=== PATIENT | male | born 1950 | race Caucasian/White ===

== ENCOUNTER 2016-04-30 10:48 | Inpatient (IN) | payer OTHER ==
--- NOTE | 2016-04-30 11:02 | ER Document Report ---
ED Medical Screen (RME) - General Stated Complaint: LEFT ARM NUMBNESS Mode of Arrival: Ambulatory Information source: Patient Notes: Patient presents to the emergency department with complaints of feeling dizzy left arm numb. Patient reports he fell out of bed early Monday morning. He reports that yesterday his arm felt numb. Patient reports he had slurred speech on Monday. Patient also reports he's been having trouble with his blood pressure for the past 2 weeks. Denies vomiting diarrhea. Denies history of cardiac disease. Slight weakness on left side. Denies chest pain, denies shortness of breath bp 154/84, took lisinopril this am. I have greeted and performed a rapid initial assessment of this patient. A comprehensive ED assessment and evaluation of the patient, analysis of test results and completion of the medical decision making process will be conducted by additional ED providers. TRAVEL OUTSIDE OF THE [place] IN LAST 30 DAYS: No - Related Data Allergies/Adverse Reactions: No Known Allergies Allergy (Verified 06/05/13 05:47) Past Medical History - Past Medical History Cardiac Medical History: Reports: Hx Hypertension Denies: Hx Heart Attack Pulmonary Medical History: Denies: Hx Asthma Neurological Medical History: Denies: Hx Cerebrovascular Accident, Hx Seizures Endocrine Medical History: Reports: Hx Diabetes Mellitus Type 1, Hx Diabetes Mellitus Type 2 GI Medical History: Reports: Hx Gastroesophageal Reflux Disease. Denies: Hx Hepatitis, Hx Hiatal Hernia, Hx Ulcer Psychiatric Medical History: Reports: Hx Depression Infectious Medical History: Denies: Hx Hepatitis Past Surgical History: Reports: Hx Appendectomy, Hx Cholecystectomy. Denies: Hx Open Heart Surgery, Hx Pacemaker - Immunizations Hx Diphtheria, Pertussis, Tetanus Vaccination: Yes
[2016-04-30 11:46] LABS: ABSOLUTE EOSINOPHILS # (AUTO) 0.2 10^3/uL (0.0-0.6); ABSOLUTE LYMPHOCYTES (AUTO) 2.1 10^3/uL (0.5-4.7); ABSOLUTE MONOCYTES (AUTO) 0.7 10^3/uL (0.1-1.4); ABSOLUTE NEUT (AUTO) 5.1 10^3/uL (1.7-8.2); BASOPHILS % (AUTO) 0.4 % (0-2); EOSINOPHILS % (AUTO) 2.3 % (0-6); LYMPHOCYTES % (AUTO) 25.6 % (13-45); MEAN CORPUSCULAR HEMOGLOBIN 30.7 pg (27.0-33.4); MEAN CORPUSCULAR HGB CONC 34.8 g/dL (32.0-36.0); MEAN CORPUSCULAR VOLUME 88 fl (80-97); MONOCYTES % (AUTO) 8.1 % (3-13); RED BLOOD COUNT 5.21 10^6/uL (4.35-5.55); RED CELL DISTRIBUTION WIDTH 13.9 % (11.5-14.0); SEGMENTED NEUTROPHILS % (AUTO) 63.6 % (42-78); WHITE BLOOD COUNT 8.1 10^3/uL (4.0-10.5)
[2016-04-30 11:47] LABS: APPEARANCE,URINE CLEAR; BILIRUBIN,URINE NEGATIVE (NEGATIVE); GLUCOSE, URINE NEGATIVE (NEGATIVE); KETONES,URINE NEGATIVE (NEGATIVE); LEUKOCYTE ESTERASE,URINE NEGATIVE (NEGATIVE); NITRITE,URINE NEGATIVE (NEGATIVE); PROTEIN,URINE NEGATIVE (NEGATIVE); URINE SPECIFIC GRAVITY 1.014; UROBILINOGEN,URINE NEGATIVE mg/dL (<2.0)
[2016-04-30 12:06] LABS: ALANINE AMINOTRANSFERASE 45 U/L (21-72); ALBUMIN 4.3 g/dL (3.5-5.0); ALKALINE PHOSPHATASE 72 U/L (38-126); ANION GAP 10 (5-19); ASPARTATE AMINO TRANSFERASE 23 U/L (17-59); BILIRUBIN,TOTAL 1.2 mg/dL (0.2-1.3); BLOOD UREA NITROGEN 16 mg/dL (7-20); CALCIUM 9.6 mg/dL (8.4-10.2); CARBON DIOXIDE 28 mmol/L (22-30); CHLORIDE 100 mmol/L (98-107); CREATININE RESULT 0.94 mg/dL (0.52-1.25); GLUCOSE 185 mg/dL (75-110); POTASSIUM 4.1 mmol/L (3.6-5.0); SODIUM 138.1 mmol/L (137-145)
[2016-04-30] MEDS ORDERED: ASPIRIN 81 MG TABLET, CHEWABLE PO ONE (13:26)
--- NOTE | 2016-04-30 13:26 | ER Document Report ---
ED Neuro Symptoms/Deficit - General Chief Complaint: Numbness Stated Complaint: LEFT ARM NUMBNESS Mode of Arrival: Ambulatory Notes: The patient is a 65-year-old male, past medical history hypertension, DM, HLD, presents with 1 day of intermittent left arm numbness. In addition, 5 days ago he was having slurred speech witnessed by his that resolved after a few minutes. While in the emergency room, the patient started to develop a left- sided mouth droop and numbness. He had a fall on the back of his head yesterday after he felt lightheaded. He denies chest pain, shortness of breath , back pain, neck pain, shoulder pain, nausea, vomiting, blurry vision, ataxia, weakness or fevers. TRAVEL OUTSIDE OF THE [place] IN LAST 30 DAYS: No - Related Data Allergies/Adverse Reactions: No Known Allergies Allergy (Verified 04/30/16 11:01) Past Medical History - General Information source: Patient - Social History Smoking Status: Never Smoker Chew tobacco use (# tins/day): No Frequency of alcohol use: None Drug Abuse: None Family History: Other - Depression Patient has suicidal ideation: No Patient has homicidal ideation: No - Past Medical History Cardiac Medical History: Reports: Hx Hypertension Denies: Hx Heart Attack Pulmonary Medical History: Denies: Hx Asthma Neurological Medical History: Denies: Hx Cerebrovascular Accident, Hx Seizures Endocrine Medical History: Reports: Hx Diabetes Mellitus Type 1, Hx Diabetes Mellitus Type 2 Renal/ Medical History: Denies: Hx Peritoneal Dialysis GI Medical History: Reports: Hx Gastroesophageal Reflux Disease. Denies: Hx Hepatitis, Hx Hiatal Hernia, Hx Ulcer Psychiatric Medical History: Reports: Hx Depression Infectious Medical History: Denies: Hx Hepatitis Past Surgical History: Reports: Hx Appendectomy, Hx Cholecystectomy. Denies: Hx Open Heart Surgery, Hx Pacemaker - Immunizations Hx Diphtheria, Pertussis, Tetanus Vaccination: Yes Review of Systems - Review of Systems Notes: REVIEW OF SYSTEMS: CONSTITUTIONAL: -fevers, -chills EENT: -eye pain, -difficulty swallowing, -nasal congestion CARDIOVASCULAR:-chest pain, -syncope. RESPIRATORY: -cough, -SOB GASTROINTESTINAL: -abdominal pain, - nausea, -vomiting, -diarrhea GENITOURINARY: -dysuria, -hematuria MUSCULOSKELETAL: -back pain, -neck pain SKIN: -rash or skin lesions. HEMATOLOGIC: -easy bruising or bleeding. LYMPHATIC: -swollen, enlarged glands. NEUROLOGICAL: -altered mental status or loss of consciousness, -headache, + neurologic symptoms PSYCHIATRIC: -anxiety, -depression. ALL OTHER SYSTEMS REVIEWED AND NEGATIVE. Physical Exam - Vital signs Vitals: Temp Pulse Resp BP Pulse Ox 98.0 F 97 24 H 154/85 H 97 04/30/16 11:01 04/30/16 11:01 04/30/16 11:01 04/30/16 11:01 04/30/16 11:01 - Notes Notes: PHYSICAL EXAMINATION: GENERAL: Well-appearing, well-nourished and in no acute distress. HEAD: Atraumatic, normocephalic. EYES: Pupils equal round and reactive to light, extraocular movements intact, sclera anicteric, conjunctiva are normal. ENT: nares patent, oropharynx clear without exudates. Moist mucous membranes. NECK: Normal range of motion, supple without lymphadenopathy LUNGS: Breath sounds clear to auscultation bilaterally and equal. No wheezes rales or rhonchi. HEART: Regular rate and rhythm without murmurs ABDOMEN: Soft, nontender, normoactive bowel sounds. No guarding, no rebound. No masses appreciated. EXTREMITIES: Normal range of motion, no pitting or edema. No cyanosis. NEUROLOGICAL: Numbness over left forearm and left lower face, left facial droop. Normal speech, normal gait. PSYCH: Normal mood, normal affect. SKIN: Warm, Dry, normal turgor, no rashes or lesions noted. Course - Re-evaluation Re-evalutation: CT head does not show any evidence of bleed or large ischemic changes. Patient with multiple symptoms concerning for TIAs. His ABCD2 score is 7. Current NIHSS is 1. He is not a tPa candidate due to rapidly resolving symptoms and low NIH stroke scale. He already took 325 mg aspirin this morning at home. Patient needs admission for further evaluation and treatment of these TIA episodes. His PMD is at the [facility]. - Vital Signs Vital signs: Temp Pulse Resp BP Pulse Ox 98.0 F 97 24 H 154/85 H 97 04/30/16 11:01 04/30/16 11:01 04/30/16 11:01 04/30/16 11:01 04/30/16 11:01 - Laboratory Result Diagrams: 04/30/16 11:10 04/30/16 11:10 Laboratory results interpreted by me: 04/30/16 11:10 Glucose 185 H - Diagnostic Test Radiology reviewed: Image reviewed, Reports reviewed Radiology results interpreted by me: CT Head: NAD. Chronic microvascular changes. CXR: NAD - EKG Interpretation by Me EKG shows normal: Sinus rhythm, [place], Intervals, QRS Complexes, ST-T Waves Discharge - Discharge Clinical Impression: TIA (transient ischemic attack) Qualifiers: Transient cerebral ischemia type: unspecified Qualified Code(s): G45.9 - Transient cerebral ischemic attack, unspecified Condition: Stable Disposition: ADMITTED INPATIENT Admitting Provider: Hospitalist [facility] Unit Admitted: IMCU Referrals: VAUGHN LE MD [Primary Care Provider] - Follow up as needed
--- NOTE | 2016-04-30 15:17 | ER Document Report ---
ED NIH Stroke Scale - NIH Stroke Scale When completed:: Before Alteplase *: 1. NIH scale should be completed with appropriate accompanying assessment tools. *: 2. The NIH should reflect what the patient is capable of doing and should not be coached by the clinician. 1a. Level of Consciousness: 0=Alert;keenly responsive -: 1=Drowsy -: 2=Obtunded -: 3=Coma/unresponsive or reflex to noxious stimuli. 1a. Responses: 0 1b. Orientation Questions: a. What month is it? -: b. How old are you? -: 0=Answers both questions correctly. -: 1=Answers one question correctly or patient is intubated or has orotracheal trauma. -: 2=Answers neither question correctly. 1b. Responses: 0 1c. Response to commands: a. Open and close eyes? -: b. Supervisor [employer] and release hand? -: Credit is given despite weakness. Demonstration of task is permitted. Substitute command if hands cannot be used. -: 0=Performs both tasks correctly -: 1=Performs one task correctly -: 2=Performs neither task correctly 1c. Responses: 0 2. Gaze: Establish eye contact and instruct patient to "Follow my finger" -: 0=Normal -: 1=Partial gaze palsy. Gaze is abnormal in one or both eyes, but where forced deviation or total gaze paresis is not present. -: 2=Forced deviation or total gaze paresis. 2. Responses: 0 3. Visual Stevens: Sees fingers in all four quadrants. -: 0=No visual loss. -: 1=Partial hemianopsia. -: 2=Complete hemianopsia. -: 3=Bilateral hemianopsia (including Cortical blindness) 3. Responses: 0 4. Facial Movement: Instruct patient to: -: a. Show me your teeth -: b. Raise your eyebrows -: c. Close your eyes -: d. Smile -: 0=Normal symmetrical movement -: 1=Minor paralysis (flattened nasolabial fold, asymmetry on smiling). -: 2=Partial paralysis (total or near total paralysis of lower face). -: 3=Complete paralysis of upper and lower face 4. Responses: 1 5. Motor functions (left arm): Alternate sides and extend each arm with palms down (90 degrees if sitting or 45 degrees for supine). -: 0=No drift;limb holds for full 10 seconds. -: 1=Drift; limb holds but drifts down before full 10 seconds, but does not hit bed. -: 2=Some effort against gravity; limb cannot get to or maintain position. -: 3=No effort against gravity; limb falls. -: 4=No movement. -: UN=Amputation, joint fusion, explain in comments. 5. Responses (left arm): 0 5. Motor Functions (right arm): Alternate sides and extend each arm with palms down (90 degrees if sitting or 45 degrees for supine). -: 0=No drift;limb holds for full 10 seconds. -: 1=Drift; limb holds but drifts down before full 10 seconds, but does not hit bed. -: 2=Some effort against gravity; limb cannot get to or maintain position. -: 3=No effort against gravity; limb falls. -: 4=No movement. -: UN=Amputation, joint fusion, explain in comments. 5. Responses (right arm): 0 6. Motor Functions (left leg): With patient lying supine, alternate sides and extend each leg (30 degrees always while supine). -: 0=No drift, leg holds position for full 5 seconds -: 1=Drift; leg falls before full 5 seconds but does not hit bed. -: 2=Some effort against gravity, leg falls to bed but some effort against gravity. -: 3=No effort against gravity, leg falls to bed immediately. -: 4=No movement. -: UN=Amputation, joint fusion; explain in comments. 6. Responses (left leg): 0 6. Motor Functions (right leg): With patient lying supine, alternate sides and extend each leg (30 degrees always while supine). -: 0=No drift, leg holds position for full 5 seconds -: 1=Drift; leg falls before full 5 seconds but does not hit bed. -: 2=Some effort against gravity, leg falls to bed but some effort against gravity. -: 3=No effort against gravity, leg falls to bed immediately. -: 4=No movement. -: UN=Amputation, joint fusion; explain in comments. 6. Responses (right leg): 0 7. Limb Ataxia: With eyes open instruct patient to: -: a. "Touch your finger to your nose". -: b. "Touch your heel to your munguia" -: 0=Absent -: 1=Present in one limb. -: 2=Present in two limbs. -: UN=Amputation or joint fusion; explain in comments. 7. Responses: 0 8. Sensory: Test sensation using pinprick or noxious stimuli. Test as many body parts as possible. -: 0=Normal;no sensory loss -: 1=Mile to moderate sensory loss (patient feels pin prick but is less sharp on affected side). -: 2=Severe or total sensory loss. 8. Responses: 0 9. Best Language: Instruct patient to: -: a. "Describe what you see in this picture." -: b. "Name the items in this picture." -: c. "Read these sentences." -: 0=No aphasia, normal -: 1=Mild to moderate aphasia. -: 2=Severe aphasia -: 3=Mute, global aphasia, no usable speech or auditory comprehension. 9. Responses: 0 10. Articulation, Dysarthia: Instruct patient to: -: "Read these words" or "Repeat these words" -: 0=Normal -: 1=Mild to moderate; patient may slur some words but can be understood without difficulty. -: 2=Severe; patients speech so slurred as to be unintelligible in the absence of dysphasia. -: UN=Intubated or other physical barrier, explain in comments. 10. Responses: 0 11. Extinction or inattention: 0=No abnormality -: 1= Visual, tactile, auditory, spatial, or personal inattention or extinction to bilateral simulation in one or the sensory modalities. -: 2=Profound cornelius-inattention or cornelius-inattention to more than one modality; does not recognize own hand. 11. Responses: 0 Total Score: 1
[2016-04-30] MEDS ORDERED: GLUCAGON,HUMAN RECOMB 1 MG INJ IM PRN (15:19)
[2016-04-30] MEDS ORDERED: DEXTROSE 50%-WATER 25 GM/50 ML DISP.SYRIN IV PRN ×2 (15:19)
[2016-04-30] MEDS ORDERED: NORMAL SALINE 1000 ML 1,000 ML IV PRN (15:19)
[2016-04-30] MEDS ORDERED: DEXTROSE 40% GEL 15 GM TUBE PO PRN ×2 (15:19)
[2016-04-30] MEDS ORDERED: CLONIDINE HCL 0.1 MG TABLET PO PRN (15:23)
[2016-04-30] MEDS ORDERED: MAGNESIUM HYDROXIDE SUSP 30 ML UDCUP PO PRN (15:23)
[2016-04-30] MEDS ORDERED: ACETAMINOPHEN 325 MG TABLET PO PRN (15:23)
[2016-04-30] MEDS ORDERED: HYDROCODONE/ACETAMINOPHEN 5-325 MG TABLET PO PRN (15:23)
[2016-04-30] MEDS ORDERED: HYDROCODONE/ACETAMINOPHEN 10-325 MG TABLET PO PRN (15:23)
[2016-04-30] MEDS ORDERED: INSULIN LISPRO 100 UNIT/ML 3 ML VIAL SUBCUT PRN (15:23)
[2016-04-30] MEDS ORDERED: ONDANSETRON HCL INJ/PF 4 MG/2 ML SDV IV PRN (15:23)
--- NOTE | 2016-04-30 16:03 | PDOC H&P ---
History of Present Illness Admission Date/PCP: 04/30/16 14:38 VAUGHN LE MD Patient complains of: Slurred speech and left arm numbness History of Present Illness: CASIMIRO AVINA is a 65 year old male presents to the emergency department from home with recurrent left arm numbness described as loss of sensation in the left anterior forearm that started at approximately 09:45 this morning. Of note , I was not consulted to see the patient until 1445 and did not arrive to see him until 1500. While in the emergency department he was noted to have left- sided facial droop but both the arm numbness and facial droop resolved according to ER physician. The patient reports his first episode occurred on Monday evening with slurred speech that lasted approximately 15 minutes, he denies word searching or confusion, difficulty swallowing, dysphagia or odynophagia and did not have any paresthesias at that time. Monday morning he accidentally rolled out of bed as he awakened falling flat on his back and striking the left occiput on the floor. He immediately felt pain but did not see stars or lose consciousness and was able to get himself back up and into bed without difficulty. There was no other associated symptoms. However later that evening while eating out at a local restaurant, he again developed left arm numbness encompassing the forearm and causing him to drop his plate several times. He noted a headache in behind his right eye at this time. The symptoms again lasted only a few minutes before completely resolving. It's not clear to me why he didn't seek treatment or evaluation with either of these episodes. He was only until this morning that his insisted he come to the emergency department. He was recently, in the last 2 weeks, diagnosed with hypertension in his doctor' s office and noted to have blood pressure of 179/126 and was initially started on triamterene/hydrochlorothiazide but that caused his blood sugars to skyrocket and he was changed to Lotrel just 2 days ago. Prior to this he was never told he had problems with his blood pressure and reports they usually run around 120/80. He also notes his blood sugars are usually normal until the last couple of days they've been in the 180s. Evaluation in the emergency department is relatively benign other than these recurrent paresthesias and neurologic symptoms. With his risk factors we were asked to admit him for further evaluation and management. His initial NIH SS = 1. By the time I arrived he was already outside the 3-4-1/2 hour window for thrombolytics. Past Medical History Cardiac Medical History: Reports: Hypertension Denies: Atrial Fibrillation, Myocardial Infarction, Heart Murmur Pulmonary Medical History: Denies: Asthma Neurological Medical History: Denies: Ischemic CVA, Seizures Endocrine Medical History: Reports: Diabetes Mellitus Type 1, Diabetes Mellitus Type 2 GI Medical History: Reports: Gastroesophageal Reflux Disease Denies: Hepatitis, Hiatal Hernia Psychiatric Medical History: Reports: Depression Hematology: Denies: Anemia, Sickle Cell Disease Past Surgical History Past Surgical History: Reports: Appendectomy, Cholecystectomy Denies: Pacemaker Social History Smoking Status: Never Smoker Frequency of Alcohol Use: None Hx Recreational Drug Use: No Hx Prescription Drug Abuse: No - Advance Directive Resuscitation Status: Full Code Family History Family History: Other - Depression Parental Family History Reviewed: Yes Children Family History Reviewed: Yes Sibling(s) Family History Reviewed.: Yes Medication/Allergy Home Medications: Allopurinol [Zyloprim 100 Mg Tablet] 100 mg PO DAILY 07/17/12 Aspirin [Ecotrin 81 mg EC Tablet] 81 mg PO DAILY 07/17/12 Ezetimibe [Zetia 10 Mg Tablet] 10 mg PO DAILY 07/17/12 Metformin HCl [Glucophage 1000 mg Tablet] 1,000 mg PO BID 07/17/12 Metoprolol Tartrate [Lopressor 50 mg Tablet] 40 mg PO Q12H 07/17/12 Sontag-3 Fatty Acids/Fish Oil [Fish Oil 1,000 Mg Capsule] 1 each PO DAILY Ondansetron [Zofran Odt 4 mg Tablet] 1 - 2 tab PO Q4H #20 tab.rapdis 06/05/13 Oxycodone HCl/Acetaminophen [Percocet 5-325 mg Tablet] 1 - 2 tab PO ASDIR PRN # 25 tablet 06/05/13 Tamsulosin HCl [Flomax 0.4 mg Cap.sr] 0.4 mg PO DAILY #7 cap.sr.24h 06/05/13 Allergies/Adverse Reactions: No Known Allergies Allergy (Verified 04/30/16 11:01) Review of Systems Constitutional: PRESENT: headache(s). ABSENT: chills, fever(s), weight gain, weight loss Eyes: ABSENT: visual disturbances Ears: ABSENT: hearing changes Cardiovascular: ABSENT: chest pain, dyspnea on exertion, edema, orthropnea, palpitations Respiratory: ABSENT: cough, hemoptysis Gastrointestinal: ABSENT: abdominal pain, constipation, diarrhea, hematemesis, hematochezia, nausea, vomiting Genitourinary: ABSENT: dysuria, hematuria Musculoskeletal: ABSENT: joint swelling Integumentary: ABSENT: rash, wounds Neurological: PRESENT: abnormal speech, focal weakness, lack of coordination, numbness, paresthesias. ABSENT: abnormal gait, confusion, dizziness, syncope Psychiatric: ABSENT: anxiety, depression, suicidal ideation Endocrine: ABSENT: cold intolerance, heat intolerance, polydipsia, polyuria Hematologic/Lymphatic: ABSENT: easy bleeding, easy bruising Physical Exam Vital Signs: Temp Pulse Resp BP Pulse Ox 98.0 F 97 24 H 154/85 H 97 04/30/16 11:01 04/30/16 11:01 04/30/16 11:01 04/30/16 11:01 04/30/16 11:01 PHYSICAL EXAM GENERAL: NAD; well developed, well nourished; morbidly obese; alert and oriented to person, place, time, situation HEENT: normocephalic, atraumatic; EOMI, PERRLA, no conjunctival injection, no scleral icterus; oral mucosa dry; neck supple, no LAD, normal ROM; no nystagmus RESPIRATORY: no accessory muscle use, no increased WOB, good air entry bilaterally; no wheezes, rales, rhonchi; no inspiratory crackles CARDIO: no JVD; RRR; no systolic murmur; borderline tachycardia VASCULAR: no carotid bruit; no abdominal bruit; no pallor; 2+ radial, DP pulse ; normal capillary refill GI: soft; nondistended; normal bowel sounds; no hepato spleno megaly; no rebound, rigidity, guarding; nontender; large pannus NEURO: normal patella reflexes; decreased sensation in the left foot and the left anterior forearm; abnormal motor function of the left foot and left arm, he could not figure out how to get his left foot to dorsiflex or plantar flex on command and kept trying to bend his knee instead, he was unable to find his nose or right ear initially with his left index finger; no dysarthria; no nystagmus; tongue protrudes midline; MSK: 5/5 strength; normal ROM hips; no tenderness EXTREMITIES: no calf tender; no palpable cords in calf; no clubbing, cyanosis , pedal edema PSYCH: normal affect, normal mood SKIN: warm; moist; no petechiae; no telengectasias; no jaundice; no rash Results Laboratory Results: Labs reviewed and essentially normal aside from hyperglycemia Impressions: Head CT 04/30/16 10:59 IMPRESSION: MILD CHRONIC CHANGES OF ATROPHY AND MICROVASCULAR ISCHEMIA. NO ACUTE PROCESS. Chest X-Ray 04/30/16 13:28 IMPRESSION: NO SIGNIFICANT RADIOGRAPHIC FINDING IN THE CHEST. Status: Imported from PACS - Reports reviewed Assessment & Plan - Diagnosis (1) CVA (cerebral vascular accident) Qualifiers: CVA mechanism: unspecified Qualified Code(s): I63.9 - Cerebral infarction, unspecified Is this a current diagnosis for this admission?: YesPlan: Though his symptoms seem to wax and wane in intensity I think he minimizes them out of fear of what they mean, telling me one thing and the ER physician and another on exam. He seems to have persistent symptoms at this time with left paresthesias and left cerebellar signs suggestive of actual CVA rather than transient attack. Admitted to [facility] for close hemodynamic monitoring, neuro checks through the night and supportive care. Check MRI of the brain without contrast looking for an acute CVA, carotid Dopplers looking for stenosis, echocardiogram looking for source of embolism. Check lipids in the morning, hemoglobin A1c, B12, TSH, mag , phosphorus. He is already a daily full dose aspirin user so we'll change to Plavix therapy and start high-dose statin therapy. Allow mild permissive hypertension. We will need CEE inhibitor, statin and probably beta tita before its all said and done and on discharge home. Consult PT/OT/SP. Patient passed his bedside nursing swallow eval. (2) Hypertension Is this a current diagnosis for this admission?: YesPlan: Treat as noted above. (3) Diabetes Qualifiers: Diabetes mellitus type: type 2 Diabetes mellitus complication status: with unspecified complications Diabetes mellitus [employer] insulin use: with [employer] use Qualified Code(s): E11.8 - Type 2 diabetes mellitus with unspecified complications; Z79.4 - alf (current) use of insulin Is this a current diagnosis for this admission?: YesPlan: Continue home dose of Lantus and cover with sliding scale. Check hemoglobin A1c in the morning. - Time Time Spent: 50 to 70 Minutes Medications reviewed and adjusted accordingly: Yes - Inpatient Certification Medical Necessity: Significant Comorbidiites Make Outpatient Treatment Too Risky , Need for Neurological Checks, Risk of Complication if Not Cared For in Hospital
[2016-04-30] MEDS ORDERED: DIAZEPAM 2 MG TABLET PO ONE (16:45)
[2016-04-30 17:07] LABS: CREATINE KINASE 83 U/L (55-170); MAGNESIUM 1.7 mg/dL (1.6-2.3); PHOSPHORUS 3.8 mg/dL (2.5-4.5)
[2016-04-30 17:59] LABS: CREATINE KINASE MB 0.36 ng/mL (<4.55)
[2016-04-30 18:01] LABS: TROPONIN I < 0.012 ng/mL
[2016-04-30] MEDS: CLOPIDOGREL BISULFATE 75 MG TABLET PO SCH (19:03)
[2016-04-30] MEDS: INSULIN GLARGINE,HUM.REC.ANLOG 300 UNIT/3 ML INSULN.PEN SUBCUT SCH (22:29)
[2016-04-30] MEDS: ATORVASTATIN CALCIUM 80 MG TABLET PO SCH (22:32)
[2016-05-01] MEDS: LANSOPRAZOLE 30 MG TAB.RAP.DR PO SCH (05:40)
[2016-05-01 05:54] LABS: Direct HDL 38 mg/dL (>40); TRIGLYCERIDES 293 mg/dL (<150)
[2016-05-01 06:18] LABS: DIRECT LDL 100 mg/dL (<100)
[2016-05-01 06:30] LABS: VLDL CHOLESTEROL 58.6 mg/dL (10-31)
[2016-05-01] MEDS: ENOXAPARIN SODIUM INJ 40 MG/0.4 ML DISP.SYRIN SUBCUT SCH (08:10)
--- NOTE | 2016-05-01 12:39 | PDOC PROGRESS REPORT ---
Subjective Progress Note for:: 05/01/16 Subjective:: Reason for visit: Follow-up probable CVA Hospital course:CASIMIRO AVINA is a 65 year old male presents to the emergency department from home with recurrent left arm numbness described as loss of sensation in the left anterior forearm that started at approximately 09:45 this morning. Of note, I was not consulted to see the patient until 1445 and did not arrive to see him until 1500. While in the emergency department he was noted to have left-sided facial droop but both the arm numbness and facial droop resolved according to ER physician. The patient reports his first episode occurred on Monday with slurred speech that lasted approximately 15 minutes, he denies word searching or confusion, difficulty swallowing, dysphagia or odynophagia and did not have any paresthesias at that time. Monday morning he accidentally rolled out of bed as he awakened falling flat on his back and striking the left occiput on the floor. He immediately felt pain but did not see stars or lose consciousness and was able to get himself back up and into bed without difficulty. There was no other associated symptoms. However later that evening while eating out at a local restaurant, he again developed left arm numbness encompassing the forearm and causing him to drop his plate several times. He noted a headache in behind his right eye at this time. The symptoms again lasted only a few minutes before completely resolving. It's not clear to me why he didn't seek treatment or evaluation with either of these episodes. He was only until this morning that his insisted he come to the emergency department. He was recently, in the last 2 weeks, diagnosed with hypertension in his doctor' s office and noted to have blood pressure of 179/126 and was initially started on triamterene/hydrochlorothiazide but that caused his blood sugars to skyrocket and he was changed to Lotrel just 2 days ago. Prior to this he was never told he had problems with his blood pressure and reports they usually run around 120/80. He also notes his blood sugars are usually normal until the last couple of days they've been in the 180s. Evaluation in the emergency department is relatively benign other than these recurrent paresthesias and neurologic symptoms. With his risk factors we were asked to admit him for further evaluation and management. His initial NIH SS = 1. By the time I arrived he was already outside the 3-4-1/2 hour window for thrombolytics. Subjective: He reports no recurrence of the left arm paresthesias or slurred speech since he arrived on the floor. He also reports intolerance to the MRI in spite of a dose of Valium preprocedure. He continues to complain of sharp, stabbing pain in behind his right eye nonradiating and not associated with any vision changes, hearing changes, numbness or tingling. He also denies chest pain, palpitations, nausea, vomiting, dysphagia, odynophagia, dysarthria, unilateral weakness. ROS: per HPI plus a total of 10 systems reviewed, pertinent positives and negatives noted above, remaining systems negative. Physical Exam Vital Signs: Temp Pulse Resp BP Pulse Ox 97.5 F 114 H 18 127/61 H 97 05/01/16 07:09 05/01/16 11:55 05/01/16 11:55 05/01/16 11:55 05/01/16 11:55 Intake & Output 04/30/16 05/01/16 05/02/16 05:59 06:59 06:59 Intake Total Balance Weight PHYSICAL EXAM GENERAL: NAD; well developed, well nourished; morbidly obese; alert and oriented to person, place, time, situation HEENT: EOMI, PERRLA, no conjunctival injection, no scleral icterus; neck supple , no LAD, normal ROM; no nystagmus RESPIRATORY: no accessory muscle use, no increased WOB, good air entry bilaterally; no wheezes, rales, rhonchi; no inspiratory crackles CARDIO: no JVD; RRR; no systolic murmur; tachycardia VASCULAR: no carotid bruit; no abdominal bruit; no pallor; 2+ radial, DP pulse ; normal capillary refill GI: soft; nondistended; normal bowel sounds; no rebound, rigidity, guarding; nontender; large pannus NEURO: normal patella reflexes; normal sensation in the left foot and the left anterior forearm today; abnormal motor function of the left arm, he was unable to find his nose or right ear initially with his left index finger; no dysarthria; no nystagmus; tongue protrudes midline; MSK: 5/5 strength; normal ROM hips; no tenderness EXTREMITIES: no calf tender; no palpable cords in calf; no clubbing, cyanosis , pedal edema PSYCH: normal affect, normal mood SKIN: warm; moist; no petechiae; no telengectasias; no jaundice; no rash Results Laboratory Results: 04/30/16 04/30/16 05/01/16 16:23 16:23 05:11 Phosphorus 3.8 Magnesium 1.7 Triglycerides 293 H Cholesterol 183.80 LDL Cholesterol Direct 100 VLDL Cholesterol 58.6 H HDL Cholesterol 38 L Vitamin B12 > 1000.0 H TSH 1.60 04/30/16 04/30/16 04/30/16 16:23 16:23 16:23 Creatine Kinase Cancelled 83 CK-MB (CK-2) 0.36 Troponin I < 0.012 Impressions: Head CT 04/30/16 10:59 IMPRESSION: MILD CHRONIC CHANGES OF ATROPHY AND MICROVASCULAR ISCHEMIA. NO ACUTE PROCESS. Chest X-Ray 04/30/16 13:28 IMPRESSION: NO SIGNIFICANT RADIOGRAPHIC FINDING IN THE CHEST. Carotid Doppler Study 04/30/16 15:22 IMPRESSION: NO HEMODYNAMICALLY SIGNIFICANT STENOSIS. Assessment & Plan - Diagnosis (1) CVA (cerebral vascular accident) Qualifiers: CVA mechanism: unspecified Qualified Code(s): I63.9 - Cerebral infarction, unspecified Is this a current diagnosis for this admission?: YesPlan: Though his symptoms seem to wax and wane in intensity I think he minimizes them out of fear of what they mean, telling me one thing and the ER physician another on exam. He seems to have persistent symptoms at this time with left paresthesias and left cerebellar signs suggestive of actual CVA rather than transient attack. Admitted to [facility] for close hemodynamic monitoring, neuro checks through the night and supportive care. unable to perform MRI of the brain looking for an acute CVA, carotid Dopplers looking for stenosis, echocardiogram looking for source of embolism still pending. lipids uncontrolled, hemoglobin A1c 7.0, B12 very high actually, TSH nl, mag & phosphorusnl. He is already a daily full dose aspirin user so we'll change to Plavix therapy and start high-dose statin therapy. Allow mild permissive hypertension. We will need CEE inhibitor, statin and probably beta tita before its all said and done and on discharge home. Consult PT/OT/SP. Patient passed his bedside nursing swallow eval. 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
--- NOTE | 2016-05-01 13:14 | XCELERA REPORT ---
[address] [address] Transthoracic Echocardiogram Report Name: CASIMIRO AVINA Age: 65 yrs Gender: Male : 1950 Patient Status: Inpatient Patient Location: 3W\S\325\S\A Study Date: 04/30/2016 04:28 PM Height: 68 in Weight: 304 lb BSA: 2.4 m2 Procedure: A two-dimensional transthoracic echocardiogram with color flow and Doppler was performed. The study was technically difficult with many images being suboptimal in quality. Reason For Study: CVA History: CVA. Ordering Physician: ANJALI DENG Performed By: Charlie Orellana Interpretation Summary There is no obvious cardiac source of embolus noted on this transthoracic echocardiogram. Follow-up with a GIOVANNY is suggested if cardiac source is still suspected. The left ventricle is normal in size. There is mild concentric left ventricular hypertrophy. Left ventricular systolic function is normal. Doppler measurements suggest impaired left ventricular relaxation, which is associated with grade I/IV or mild diastolic dysfunction The left ventricular wall motion is normal. The right ventricular apex is not well visualized. The left atrial size is normal. There is no evidence of mitral valve prolapse. There is no vegetation seen on the mitral valve. There is no mitral valve stenosis. There is no mitral regurgitation noted. There is no aortic valve stenosis There is no LVOT obstruction. There is a trace amount of aortic regurgitation There is no tricuspid stenosis. There is a trace amount of tricuspid regurgitation There is mild pulmonary hypertension by echo RVSP is 45 mm of Hg, with RA mran of 10. The aortic root is not well visualized but is probably normal size. There is no pericardial effusion. MMode/2D Measurements \T\ Calculations RVDd: 2.7 cm LVIDd: 4.6 cm FS: 28.0 % Ao root diam: 3.6 cm IVSd: 1.3 cm LVIDs: 3.3 cm EDV(Teich): 96.5 ml LVPWd: 1.4 cm ESV(Teich): 44.1 ml Ao root area: 10.3 cm2 EF(Teich): 54.3 % LA dimension: 3.5 cm Doppler Measurements \T\ Calculations MV E max bo: MV P1/2t max bo: Ao V2 max: LV V1 max P.5 cm/sec 54.5 cm/sec 98.0 cm/sec 2.2 mmHg MV A max bo: MV P1/2t: 42.9 msec Ao max PG: LV V1 max: 74.7 cm/sec 3.8 mmHg 74.0 cm/sec MV E/A: 0.73 MVA(P1/2t): 5.1 cm2 MV dec slope: 372.4 cm/sec2 MV dec time: 0.14 sec PA V2 max: TR max bo: RAP systole: 76.0 cm/sec 293.6 cm/sec 10.0 mmHg PA max PG: TR max P.5 mmHg 2.3 mmHg RVSP(TR): 44.5 mmHg Left Ventricle The left ventricle is normal in size. There is mild concentric left ventricular hypertrophy. Left ventricular systolic function is normal. Doppler measurements suggest impaired left ventricular relaxation, which is associated with grade I/IV or mild diastolic dysfunction. The left ventricular wall motion is normal. There is no thrombus. Right Ventricle The right ventricular apex is not well visualized. Atria Right atrium not well visualized secondary to technical limitations. The left atrial size is normal. Mitral Valve There is no evidence of mitral valve prolapse. There is no vegetation seen on the mitral valve. There is no mitral valve stenosis. There is no mitral regurgitation noted. Aortic Valve The aortic valve is trileaflet. The aortic valve opens well. There is no aortic valvular vegetation. There is no aortic valve stenosis. There is no LVOT obstruction. There is a trace amount of aortic regurgitation. Tricuspid Valve There is no tricuspid stenosis. There is a trace amount of tricuspid regurgitation. There is mild pulmonary hypertension by echo. RVSP is 45 mm of Hg, with RA mran of 10. Pulmonic Valve There is no pulmonic valvular stenosis. There is no pulmonic valvular regurgitation. Great Vessels The aortic root is not well visualized but is probably normal size. Effusions There is no pericardial effusion. : ANJALI DENG > Kathy Singh
[2016-05-01] MEDS ORDERED: ALLOPURINOL 100 MG TABLET PO SCH (14:00)
[2016-05-01] MEDS ORDERED: METOPROLOL SUCCINATE 50 MG TAB.SR.24H PO SCH (18:00)
[2016-05-01] MEDS ORDERED: CLOPIDOGREL BISULFATE 75 MG TABLET PO ONE (18:36)
--- NOTE | 2016-05-01 20:18 | EKG REPORT ---
SEVERITY:- BORDERLINE ECG - SINUS RHYTHM VENTRICULAR PREMATURE COMPLEX PROBABLE LEFT ATRIAL ABNORMALITY BORDERLINE T WAVE ABNORMALITIES : Confirmed by: Ivan Panchal 01-May-2016 20:17:50
[2016-05-01] MEDS: LACTOBACILLUS ACIDOPHILUS 250 MG TAB PO SCH (21:48)
[2016-05-01] MEDS: ATORVASTATIN CALCIUM 80 MG TABLET PO SCH (21:48)
[2016-05-01] MEDS: GLIPIZIDE 5 MG TABLET PO SCH (21:49)
[2016-05-01] MEDS: INSULIN GLARGINE,HUM.REC.ANLOG 300 UNIT/3 ML INSULN.PEN SUBCUT SCH (21:50)
[2016-05-01] MEDS ORDERED: LACTOBACILLUS ACIDOPHILUS PO SCH (22:00)
[2016-05-02] MEDS: LANSOPRAZOLE 30 MG TAB.RAP.DR PO SCH (05:21)
[2016-05-02] MEDS: ENOXAPARIN SODIUM INJ 40 MG/0.4 ML DISP.SYRIN SUBCUT SCH (08:33)
[2016-05-02] MEDS: CLOPIDOGREL BISULFATE 75 MG TABLET PO SCH (09:09)
[2016-05-02] MEDS: LACTOBACILLUS ACIDOPHILUS 250 MG TAB PO SCH (09:10)
[2016-05-02] MEDS: GLIPIZIDE 5 MG TABLET PO SCH (09:10)
[2016-05-02] MEDS ORDERED: CLOPIDOGREL BISULFATE 75 MG TABLET PO SCH (10:00)
[2016-05-02 10:52] VITALS: BP 137/97
--- NOTE | 2016-05-02 16:58 | PDOC DISCHARGE SUMMARY ---
General - Admit/Disc Date/PCP Admission Date/Primary Care Provider: 04/30/16 15:19 VAUGHN LE MD Discharge Date: 05/02/16 - Discharge Diagnosis (1) CVA (cerebral vascular accident) Is this a current diagnosis for this admission?: YesSummary: Though his symptoms seem to wax and wane in intensity I think he minimizes them out of fear of what they mean, telling me one thing and the ER physician another on exam. He seems to have persistent symptoms at this time with left paresthesias and left cerebellar signs suggestive of actual CVA rather than transient attack. Admitted to [facility] for close hemodynamic monitoring, neuro checks through the night and supportive care. unable to perform MRI of the brain looking for an acute CVA, carotid Dopplers looking for stenosis, echocardiogram looking for source of embolism still pending. lipids uncontrolled, hemoglobin A1c 7.0, B12 very high actually, TSH nl, mag & phosphorusnl. He is already a daily full dose aspirin user so we'll change to Plavix therapy and start high-dose statin therapy. Allow mild permissive hypertension with goal blood pressure 140/90 for the next couple weeks and then normalized the next couple of months to less than 125/85. We will need CEE inhibitor, statin and probably beta tita before its all said and done. Consult PT/OT/SP but he has no persistent symptoms at this time to warrant further outpatient therapy. patient passed his bedside nursing swallow eval and has had no difficulty with oral intake since admission. (2) Hypertension Is this a current diagnosis for this admission?: Yes (3) Diabetes Is this a current diagnosis for this admission?: Yes - Additional Information Resuscitation Status: Full Code Discharge Diet: Diabetic Discharge Activity: Activity As Tolerated Home Medications: Allopurinol [Zyloprim 100 mg Tablet] 100 mg PO DAILY 04/30/16 Cholecalciferol (Vitamin D3) [Vitamin D3 1000 Unit Tablet] 2,000 units PO QPM Cyanocobalamin (Vitamin B-12) [Vitamin B-12 1000 mcg Tablet] 1,000 mcg PO NOON 04/30/16 Ezetimibe [Zetia 10 mg Tablet] 10 mg PO DAILY 04/30/16 Fish Oil/Borage/Flax/Om3,6,9#1 [[place] 3-6-9 1,200 mg Softgel] 1,200 mg PO DAILY 04/30/16 Glipizide [Glucotrol 5 mg Tablet] 5 mg PO Q12 04/30/16 Insulin Glargine,Hum.rec.anlog [Lantus Solostar] 34 units SQ QHS 04/30/16 Lactobacillus Acidophilus [Acidophilus Lactobacilli] 1 cap PO Q12 04/30/16 Lisinopril/Hydrochlorothiazide [Zestoretic 20-25 mg Tablet] 1 tab PO DAILY 04/30 Loperamide HCl [Imodium 2 mg Capsule] 4 mg PO PRN PRN 04/30/16 Metformin HCl [Metformin HCl ER] 1,000 mg PO BID 04/30/16 Metoprolol Succinate [Toprol Xl 50 mg Tab.sr] 25 mg PO PCSUPPER 04/30/16 Mirtazapine [Remeron] 45 mg PO QHS 04/30/16 Naproxen Sodium [Aleve] 220 mg PO DAILY 04/30/16 Atorvastatin Calcium [Lipitor 80 mg Tablet] 80 mg PO QHS #30 tablet 05/02/16 Clopidogrel Bisulfate [Plavix 75 mg Tablet] 75 mg PO DAILY #30 tablet 05/02/16 History of Present Illness Patient complains of: Left arm numbness History of Present Illness: CASIMIRO AVINA is a 65 year old male presents to the emergency department from home with recurrent left arm numbness described as loss of sensation in the left anterior forearm that started at approximately 09:45 this morning. Of note , I was not consulted to see the patient until 1445 and did not arrive to see him until 1500. While in the emergency department he was noted to have left- sided facial droop but both the arm numbness and facial droop resolved according to ER physician. The patient reports his first episode occurred on Monday evening with slurred speech that lasted approximately 15 minutes, he denies word searching or confusion, difficulty swallowing, dysphagia or odynophagia and did not have any paresthesias at that time. Monday morning he accidentally rolled out of bed as he awakened falling flat on his back and striking the left occiput on the floor. He immediately felt pain but did not see stars or lose consciousness and was able to get himself back up and into bed without difficulty. There was no other associated symptoms. However later that evening while eating out at a local restaurant, he again developed left arm numbness encompassing the forearm and causing him to drop his plate several times. He noted a headache in behind his right eye at this time. The symptoms again lasted only a few minutes before completely resolving. It's not clear to me why he didn't seek treatment or evaluation with either of these episodes. He was only until this morning that his insisted he come to the emergency department. He was recently, in the last 2 weeks, diagnosed with hypertension in his doctor' s office and noted to have blood pressure of 179/126 and was initially started on triamterene/hydrochlorothiazide but that caused his blood sugars to skyrocket and he was changed to Lotrel just 2 days ago. Prior to this he was never told he had problems with his blood pressure and reports they usually run around 120/80. He also notes his blood sugars are usually normal until the last couple of days they've been in the 180s. Hospital Course Hospital Course: Evaluation in the emergency department is relatively benign other than these recurrent paresthesias and neurologic symptoms. With his risk factors we were asked to admit him for further evaluation and management. His initial NIH SS = 1. By the time I arrived he was already outside the 3-4-1/2 hour window for thrombolytics. He reports recurrence of the left arm paresthesias or slurred speech intermittently since he arrived on the floor but each time transient, lasting less than 30 minutes. He also reports intolerance to the MRI in spite of a dose of Valium preprocedure and therefore was unable to complete. He continues to complain of intermittent sharp, stabbing pain in behind his right eye nonradiating and not associated with any vision changes, hearing changes, numbness or tingling. He also denies chest pain, palpitations, nausea, vomiting , dysphagia, odynophagia, dysarthria, unilateral weakness. Carotid Dopplers were performed and showed mild irregular focal plaque in the left proximal carotid artery, none in the right and good antegrade flow in the vertebral arteries. Echocardiogram showed mild diastolic dysfunction, good LV function and no valvular or wall motion abnormalities. There is no evidence of an intracardiac thrombus. Monitoring on telemetry failed to reveal anything other than normal sinus rhythm. His CBC was unremarkable, his LFTs and chemistries were normal, his lipids however show poor control particularly of his triglycerides were high at 293 with total cholesterol 184, LDL 100, HDL of 38. His vitamin B12 level and TSH were normal. His blood pressure is not well controlled. At this time I can find no correctable cause for his waxing and waning symptoms and he cannot tolerate an MRI to confirm my suspicion of acute CVA. We'll treat empirically with high-dose statin therapy and defer to his primary care provider for further titration of his antihypertensive regimen. His hemoglobin A1c shows excellent control at 7.0 so he should continue his usual home regimen. At this time the patient is hemodynamically stable for discharge home, he has had a bleed resolution of his symptoms and no recurrence of the last 12 hours. He was instructed in the presence of his to return to the emergency department within 3 hours of onset of her current symptoms due to the narrow window for thrombolytic therapy. Both parties state complete understanding and willingness to comply with medical direction. He was changed from aspirin to Plavix therapy. He was encouraged to follow-up with his primary care provider in one to 2 weeks. Physical Exam Vital Signs: Temp Pulse Resp BP Pulse Ox 98.3 F 86 20 137/97 H 96 05/02/16 10:50 05/02/16 10:50 05/02/16 10:50 05/02/16 10:50 05/02/16 10:50 Intake & Output 05/01/16 05/02/16 05/03/16 06:59 06:59 06:59 Intake Total 2449 Balance 2449 Weight 125.4 kg PHYSICAL EXAM GENERAL: NAD; well developed, well nourished; morbidly obese; alert and oriented to person, place, time, situation HEENT: EOMI, PERRLA, no conjunctival injection, no scleral icterus; neck supple , no LAD, normal ROM; no nystagmus RESPIRATORY: no accessory muscle use, no increased WOB, good air entry bilaterally; no wheezes, rales, rhonchi; no inspiratory crackles CARDIO: no JVD; RRR; no systolic murmur; tachycardia VASCULAR: no carotid bruit; no abdominal bruit; no pallor; 2+ radial, DP pulse ; normal capillary refill GI: soft; nondistended; normal bowel sounds; no rebound, rigidity, guarding; nontender; large pannus NEURO: normal patella reflexes; normal sensation in the left foot and the left anterior forearm today; no abnormal motor function of the left arm; no dysarthria; no nystagmus; tongue protrudes midline; MSK: 5/5 strength; normal ROM hips; no tenderness EXTREMITIES: no calf tender; no palpable cords in calf; no clubbing, cyanosis , pedal edema PSYCH: normal affect, normal mood SKIN: warm; moist; no petechiae; no telengectasias; no jaundice; no rash Results Laboratory Results: 04/30/16 04/30/16 04/30/16 16:23 16:23 16:23 Creatine Kinase Cancelled 83 CK-MB (CK-2) 0.36 Troponin I < 0.012 Impressions: Head CT 04/30/16 10:59 IMPRESSION: MILD CHRONIC CHANGES OF ATROPHY AND MICROVASCULAR ISCHEMIA. NO ACUTE PROCESS. Chest X-Ray 04/30/16 13:28 IMPRESSION: NO SIGNIFICANT RADIOGRAPHIC FINDING IN THE CHEST. Carotid Doppler Study 04/30/16 15:22 IMPRESSION: NO HEMODYNAMICALLY SIGNIFICANT STENOSIS. Qualifiers PATEINT BEING DISCHARGED WITH ANY OF THE FOLLOWING DIAGNOSIS?: Stroke VTE patient discharged on overlapping Therapy?: No Reason(s) for not prescribing Overlap Therapy:: Medical Contraindication Stroke Pt being discharged on Anti-thrombolytic therapy?: Yes Stroke Pt being discharged on Anti-coagulation therapy?: No Reason(s) for not prescribing Anti-coagulation therapy:: Not indicated Stroke Pt being discharged on Statins?: Yes Plan Time Spent: Greater than 30 Minutes
== END 2016-05-02 11:53 | disposition home or self-care (01) | DRG 65 ==
LOC: ER 10:48 → UNDOADMIN 14:38 → EH 14:38 → 3W 18:31
PROVIDERS: ADMIT Internal Medicine; ATTEND Internal Medicine
DX: I63.9 Cerebral infarction, unspecified (principal); Z68.41 Body mass index [BMI] 40.0-44.9, adult; I10 Essential (primary) hypertension; E11.9 Type 2 diabetes mellitus without complications; E66.01 Morbid (severe) obesity due to excess calories; R20.0 Anesthesia of skin; R29.810 Facial weakness; K21.9 Gastro-esophageal reflux disease without esophagitis; F32.9 Major depressive disorder, single episode, unspecified; Z79.899 Other long term (current) drug therapy; Z79.02 Long term (current) use of antithrombotics/antiplatelets; Z90.49 Acquired absence of other specified parts of digestive tract; Z79.84 Long term (current) use of oral hypoglycemic drugs; Z79.4 Long term (current) use of insulin
CPT/HCPCS: 36415; 70450; 71020; 80053; 80061; 81001; 82550; 82553; 82607; 82962; 83036; 83735; 84100; 84443; 84484; 85025; 87804; 93005; 93010; 93306; 93880; 99285; J1650; J1815; J3490; J7030